=== PATIENT | female | born 1970 | race Caucasian/White ===

== ENCOUNTER 2017-05-21 07:10 | Day surgery (SDC) | payer BC, OTHER ==
[2017-05-21 07:39] LABS: HEMATOCRIT 26.3 % (36.0-47.0); HEMOGLOBIN 9.2 g/dL (12.0-15.5); HGB HCT DIFFERENCE 1.3; MEAN CORPUSCULAR HEMOGLOBIN 32.7 pg (27.0-33.4); MEAN CORPUSCULAR HGB CONC 34.8 g/dL (32.0-36.0); MEAN CORPUSCULAR VOLUME 94 fl (80-97); RED CELL DISTRIBUTION WIDTH 14.5 % (11.5-14.0); WHITE BLOOD COUNT 4.7 10^3/uL (4.0-10.5)
[2017-05-21 07:50] LABS: PROTHROMBIN TIME 13.5 SEC (11.4-15.4)
[2017-05-21 07:57] LABS: BLOOD UREA NITROGEN 16 mg/dL (7-20); CREATININE RESULT 0.97 mg/dL (0.52-1.25)
[2017-05-21] MEDS ORDERED: MIDAZOLAM 2 MG/2 ML INJ ONE (08:21)
[2017-05-21] MEDS ORDERED: FENTANYL CITRATE INJ/PF 100 MCG/2 ML AMPUL ONE (08:21)
[2017-05-21 11:34] VITALS: BP 158/89
--- NOTE | 2017-05-21 13:37 | RADIOLOGY REPORT (SQ) ---
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 TECHNIQUE: CT guided biopsy of the right posterior iliac crest bone marrow performed with conscious sedation. CT Fluoroscopy Time: 2.[address] scanners at this facility use dose modulation, iterative reconstruction, and/or weight based d osing when appropriate to reduce radiation dose to as low as reasonably achievable (ALARA). [facility]: Dose Right [facility]: CareDose [facility]: Dose Right [facility]: Teradose 4D [facility]: [employer] RADIATION DOSE: mGy. FINDINGS: The procedure was discussed with the patient and the patient agreed to the procedure. Prio r to the procedure, a time out was performed to verify the patient's identity and planned procedure. IV sedation was administered and physician direction by the registered nurse using 2 milligrams of Ve rsed and 75 micrograms of fentanyl. Physiologic monitoring was provided before, during, and after sed ation. The total sedation time was 30 minutes. Documentation face to face time, the performing proceduralist, spent monitoring the patient: [address] scanning was performed to localize the percutaneous site for the biopsy approach. After sterile skin prep and local lidocaine for skin and deep tissue anesthesia, a 14 gauge bone biop sy needle was used to obtain and bone marrow aspirate and trabecular bone for biopsy. The biopsy tiss ue was submitted to Dr aMst's nurse. There were no immediate complications. Pathology is pending at the time of dictation. IMPRESSION: CT GUIDED BIOPSY OF THE RIGHT POSTERIOR ILIAC CREST BONE MARROW PERFORMED WITHOUT IMMEDI ATE COMPLICATION. PATHOLOGY PENDING. COMMENT: Quality ID 145: Final reports for procedures using fluoroscopy that document radiation exp osure indices, or exposure time and number of fluorographic images (if radiation exposure indices are not available) Patient medication list reviewed: Yes- Quality ID# [id number]:Eligible professional attests to documenting i n the medical record they obtained, updated, or reviewed the patient's current medications.. TECHNICAL DOCUMENTATION: JOB ID: [id number] Quality ID# [id number]: Final reports with documentation of one or more dose reduction techniques (e.g., Aut omated exposure control, adjustment of the mA and/or kV according to patient size, use of iterative r econstruction technique) 2010 [employer]- All Rights Reserved
--- NOTE | 2017-05-21 13:37 | RADIOLOGY REPORT (SQ) ---
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 TECHNIQUE: CT guided biopsy of the right posterior iliac crest bone marrow performed with conscious sedation. CT Fluoroscopy Time: 2.[address] scanners at this facility use dose modulation, iterative reconstruction, and/or weight based d osing when appropriate to reduce radiation dose to as low as reasonably achievable (ALARA). [facility]: Dose Right [facility]: CareDose [facility]: Dose Right [facility]: Teradose 4D [facility]: [email or web address] RADIATION DOSE: mGy. FINDINGS: The procedure was discussed with the patient and the patient agreed to the procedure. Prio r to the procedure, a time out was performed to verify the patient's identity and planned procedure. IV sedation was administered and physician direction by the registered nurse using 2 milligrams of Ve rsed and 75 micrograms of fentanyl. Physiologic monitoring was provided before, during, and after sed ation. The total sedation time was 30 minutes. Documentation face to face time, the performing proceduralist, spent monitoring the patient: [address] scanning was performed to localize the percutaneous site for the biopsy approach. After sterile skin prep and local lidocaine for skin and deep tissue anesthesia, a 14 gauge bone biop sy needle was used to obtain and bone marrow aspirate and trabecular bone for biopsy. The biopsy tiss ue was submitted to Dr Mast's nurse. There were no immediate complications. Pathology is pending at the time of dictation. IMPRESSION: CT GUIDED BIOPSY OF THE RIGHT POSTERIOR ILIAC CREST BONE MARROW PERFORMED WITHOUT IMMEDI ATE COMPLICATION. PATHOLOGY PENDING. COMMENT: Quality ID 145: Final reports for procedures using fluoroscopy that document radiation exp osure indices, or exposure time and number of fluorographic images (if radiation exposure indices are not available) Patient medication list reviewed: Yes- Quality ID# [id number]:Eligible professional attests to documenting i n the medical record they obtained, updated, or reviewed the patient's current medications.. TECHNICAL DOCUMENTATION: JOB ID: [id number] Quality ID# [id number]: Final reports with documentation of one or more dose reduction techniques (e.g., Aut omated exposure control, adjustment of the mA and/or kV according to patient size, use of iterative r econstruction technique) 2010 [email or web address]- All Rights Reserved
== END 2017-05-21 11:00 | disposition home or self-care (01) ==
LOC: RAD 07:10
PROVIDERS: ATTEND Internal Medicine
PROC: 0QB23ZX Excision of Right Pelvic Bone, Percutaneous Approach, Diagnostic (ICD-10-PCS; principal; 2017-05-21)
DX: C90.00 Multiple myeloma not having achieved remission (principal)
CPT/HCPCS: 36415; 84520; 82565; 85027; 85610; 85730; 77012; 20225; J2250; J3010

== ENCOUNTER → 2017-06-08 | Outpatient (CLI) | payer BC ==
--- NOTE | 2017-06-09 13:10 | RADIOLOGY REPORT (SQ) ---
EXAM DESCRIPTION: PET CT SKULL/THIGH COMPLETED DATE/TIME: 06/09/2017 9:24 am REASON FOR STUDY: MULTIPLE MYELOMA C90.00 MULTIPLE MYELOMA NOT HAVING ACHIEVED REMISSION COMPARISON: Bone marrow biopsy 05/21/2017 RADIONUCLIDE AND DOSE: 11.8 mCi F18 FDG The route of agent administration: Intravenous FASTING BLOOD SUGAR: 87 mg/dl CONTRAST TYPE AND DOSE: No CT contrast given. TECHNIQUE: Blood glucose level was verified. Above dose of FDG was injected intravenously. 2-D seg mented attenuation correction images were obtained through the entire body. Noncontrast CT images we re obtained for attenuation correction and fusion with emission images. CT images were performed wit hout oral or intravenous contrast and are not sensitive for parenchymal lesions. A series of overlap ping emission PET images were obtained. Images reviewed and manipulated at independent work station by the radiologist. Images stored on PACS. LIMITATIONS: None. FINDINGS: HEAD AND NECK: No areas of abnormal metabolic activity in the soft tissues of the head and neck. CHEST: No areas of abnormal metabolic activity in the chest. ABDOMEN AND PELVIS: No areas of abnormal metabolic activity in the abdomen or pelvis. Expected physi ologic activity is present in the genitourinary system and bowel. LOWER EXTREMITIES: No areas of abnormal metabolic activity in the soft tissues of the lower extremiti es. BONES: No abnormal metabolic activity in the visualized skeleton. However, there are multiple areas of lytic permeative lesions which are at background activity. The largest of these is in the right i nnominate bone, 2.6 x 1.[address] image 232, SUV 1.4. ADDITIONAL CT FINDINGS: Ascending thoracic aorta 4.2 cm in diameter. 8 to 9 mm cyst left lobe liver axial image 165 OTHER: Liver background metabolic activity 2.2 SUV. Blood pool background activity 1.5 SUV IMPRESSION: Multiple lytic skeletal lesions from myeloma. No hypermetabolic lesions are identified TECHNICAL DOCUMENTATION: JOB ID: [id number]- All Rights Reserved
== END ==
LOC: RAD 18:28
PROVIDERS: ATTEND Internal Medicine
DX: C90.00 Multiple myeloma not having achieved remission (principal)
CPT/HCPCS: 78815; A9552

== ENCOUNTER → 2019-03-08 | Outpatient (CLI) | payer BC | LOC: OD 16:08 | PROVIDERS: ATTEND Internal Medicine | DX: Z01.83 Encounter for blood typing (principal) | CPT/HCPCS: 36415; 86850; 86880; 86900; 86901 ==